=== PATIENT | female | born 1990 | race Caucasian/White ===

== ENCOUNTER 2017-04-05 14:08 | Inpatient (IN) ==
[2017-04-05] MEDS ORDERED: Naloxone 0.4 MG/ML INJ IVP PRN (14:57)
[2017-04-05] MEDS ORDERED: Metoclopramide 10 MG/2 ML VIAL IVP PRN (14:57)
[2017-04-05] MEDS ORDERED: Famotidine 20 MG/2 ML VIAL IVP PRN (14:57)
[2017-04-05] MEDS ORDERED: Ondansetron 4 MG/2 ML VIAL IVP PRN (14:57)
[2017-04-05] MEDS ORDERED: *HR* Nalbuphine 20 MG/ML AMPUL IVP PRN (14:57)
--- NOTE | 2017-04-05 15:13 | OB/GYN History & Physical ---
Date of Encounter: 04/05/17 Time of Encounter: 15:04 Assessment and Plan (1) 40 weeks gestation of Current visit: Yes Status: Acute Admit for induction of labor Continuous monitoring Anticipate (2) Hypertension affecting in third trimester Current visit: Yes Status: Acute Serial BP measurements PIH lab work up with UPCR Induction plan to begin with hennessy bulb. Patient informed and agrees. History of Present Illness Chief complaint: IOL for hypertension at 40 weeks HPI: Ms. Munoz is a 26 year old female at 40w0d who was sent for IOL from the office for elevated blood pressure today. Patient denies headache, visual changes, epigastric pain, and swelling. Denies fluid leakage, bleeding, and reports positive movement. Denies contractions but irregular ctx noted on monitor. Blood type O+ GBS negative HbSAG negative T. Pall negative Rubella non-immune Varicella immune Past Med Surg Social Fam HX - Past Medical History Medical history: no medical history Psychiatric history: no psych history - Past Surgical History Surgical History: other (T&A "a couple of years ago") - Social History Smoking Status: Never smoker Smokeless Tobacco Status: No Alcohol use: none Drug use: none Obstetrical History - Pregnancies : 1 Para: 0 Term: 0 : 0 Ab's: 0 Livin Medications and Allergies Cephalexin [Keflex] 500 mg PO QID #28 capsule 11/20/16 [Rx] 3 Allergy/AdvReac Type Severity Reaction Status Date / Time Sulfa (Sulfonamide Allergy Hives Verified 11/20/16 01:04 Antibiotics) Review of System OB All systems PM: reviewed and no additional remarkable complaints except as stated Exam - Constitutional Constitutional: well developed, well nourished, no acute distress, average body habitus - Neck Neck exam: full ROM, normal inspection - Lungs Respiratory exam: CTAB - Cardiovascular Cardiovascular exam: RRR, +S1, +S2 - Breasts Breast: bilateral: normal - Abdomen Abdomen: Present: bowel sounds normal, gravid, non tender - Extremities Extremities exam: full ROM, normal capillary refill, normal inspection - Cervix Dilation: 1 Effacement: 50 (Per Dr. Solitario office exam) Station: -3 - Comments Comments: FHR 140 bpm, moderate variability, no accels, no decels. Category I tracing. Irregular contractions noted. Results All other labs normal. - VTE Reasons for not Prescribing Prophylaxis: Treatment not Indicated - Low risk for VTE
[2017-04-05] MEDS ORDERED: Ringers Solution, Lactated 1,000 ML ONE ×2 (15:31→22:36)
[2017-04-05 16:03] LABS: Basophils % 0.3 %; Eosinophils # 0.1 K/mcL (0.0-0.6); Eosinophils % 1.2 %; Hematocrit 38.9 % (35.3-44.9); Hemoglobin 12.3 g/dL (11.5-15.4); Immature Granulocytes % 0.7 % (0-4); Lymphocytes # 1.8 K/mcL (0.6-4.6); Lymphocytes % 14.8 %; Mean Corpuscular HGB Conc 31.6 g/dL (31.6-35.5); Mean Corpuscular Hemoglobin 27.2 pg (28.0-33.3); Mean Corpuscular Volume 86.1 fL (83.0-100.0); Mean Platelet Volume 12.2 fL (9.4-12.4); Monocytes # 0.9 K/mcL (0.0-1.3); Monocytes % 7.1 %; Neutrophils # 9.1 K/mcL (1.6-8.9); Platelet Count 195 K/mcL (140-400); Red Blood Count 4.52 M/mcL (3.82-4.97); Red Cell Distribution Width 14.3 % (11.5-14.5); Segmented Neutrophils % 75.9 %
[2017-04-05 16:05] LABS: Amphetamine Screen,Urine Negative ng/mL (Cutoff=1000); Barbiturate Screen,Urine Negative ng/mL (Cutoff=200); Benzodiazepines Screen,Urine Negative ng/mL (Cutoff=200); Cannabinoid Screen,Urine Negative ng/mL (Cutoff = 50); Cocaine Screen,Urine Negative ng/mL (Cutoff= 300); Opiate Screen,Urine Negative ng/mL (Cutoff=300); Phencyclidine Screen,Urine Negative ng/mL (Cutoff=25)
--- NOTE | 2017-04-05 16:21 | OB Labor Progress Note ---
Date of Encounter: 04/05/17 Time of Encounter: 15:26 Labor Progress Note - Subjective Subjective: Patient resting in bed, denies complaint of contraction pain. Discussed plan of care and patient is agreeable to placement of hennessy bulb. - Cervix Cervix: 2/50/-2 - Heart Tones Heart Tones: 135 bpm, moderate variability, no accels, variable decels. - [place]: 2-4 minutes - Interventions Interventions: SVE, attempted to place hennessy balloon with unintentional AROM of moderate amount of moderate/heavy meconium fluid. - Plan Plan: Continue expectant management. Assess contraction pattern after AROM to determine need for further augmentation /induction.
[2017-04-05 16:42] LABS: Alanine Aminotransferase 6 Units/L (7-52); Aspartate Amino Transferase 9 Units/L (13-39); BUN/Creatinine Ratio 18 (6-26); Blood Urea Nitrogen 7 mg/dL (6-20); Lactate Dehydrogenase 133 Units/L (140-271); Uric Acid 5.6 mg/dL (2.3-7.6); eGFR For African Americans > 60 (> 60); eGFR For Non-African Americans > 60 (> 60)
[2017-04-05] MEDS ORDERED: miSOPROStol 100 MCG TABLET PO STA (21:40)
--- NOTE | 2017-04-05 22:49 | OB Labor Progress Note ---
Date of Encounter: 04/05/17 Time of Encounter: 22:48 Labor Progress Note - Subjective Subjective: Pt comfortable at this time. - Heart Tones Heart Tones: Category I - [place]: irregular - Plan Plan: Cytotec 50mcg given PO for augmentation of labor. Continue to monitor closely. Epidural when requested. Anticipate .
[2017-04-06] MEDS ORDERED: Oxytocin 20 units/ LR 1000 mL 20 UNIT/1,000 ML BAG IVC SCH ×2 (02:30→18:03)
[2017-04-06] MEDS ORDERED: Ringers Solution, Lactated 1,000 ML ONE ×4 (05:19→15:25)
[2017-04-06] MEDS ORDERED: *HR* FentaNYL (PF) 100 MCG/2 ML VIAL EP ONE (05:45)
[2017-04-06] MEDS ORDERED: Epidural Premix (fent/bupiv) 110 ML EP SCH (05:45)
[2017-04-06] MEDS ORDERED: Bupivacaine-MPF 0.25% 10 ML VIAL EP ONE (05:45)
[2017-04-06] MEDS ORDERED: Epidural Premix (fent/bupiv) 110 ML EP ONE ×2 (05:59→12:54)
--- NOTE | 2017-04-06 06:38 | Anesthesia Evaluation PreOp ---
Date of Encounter: 04/06/17 Time of Encounter: 05:50 - Past History Planned Operation: labor epidural Cardiac History: Denies any Significant Hx Pulmonary History: Denies Any Significant HX, Other EMBOSSING TOOLSETTER History: Denies Any Significant HX Other Medical History: Other (Obesity.) Alcohol Use: none Drug use: none Medications and Allergies Pnv Plus Multivit Tab 04/05/17 [History] 3 Allergy/AdvReac Type Severity Reaction Status Date / Time Sulfa (Sulfonamide Allergy Hives Verified 11/20/16 01:04 Antibiotics) - Meds/Allergy Pre-op Review Medications Reviewed: Yes Allergies Reviewed: Yes Beta Blockers on Current Med List: No Anesthesia Results - Labs 04/05/17 15:15 04/05/17 15:15 Anesthesia Exam Height: 5'4" Weight: 94 kg NPO (# of Hours): 24 Pain Scale: 6 Pain Scale Used: Numeric (1 - 10) - HEENT Pupil (Motor): Pupils equal, EOMI Mallampati: II Teeth: Poor dentition Oral Opening: Greater than 3 - EMBOSSING TOOLSETTER LOC: Oriented EMBOSSING TOOLSETTER Motor: Normal RUE, Normal LUE, Normal RLE, Normal LLE, Normal Face EMBOSSING TOOLSETTER Sensory: Normal: RUE, LUE, RLE, LLE, Face - Cardiac Rhythm: Regular - Pulmonary Breath Sounds: bilateral Clear Respiratory Effort: Symmetrical Anesthesia Assess/Plan ASA Score: 2 Modified Whitney Scale for Level of Consciousness: Cooperative, oriented, and tranquil Anesthetic Plan: Regional Monitoring Plan: Standard Monitors
--- NOTE | 2017-04-06 06:42 | Anesthesia Procedures ---
Date of Encounter: 04/06/17 Time of Encounter: 06:01 Procedures: Anesthesia - Epidural/Spinal Patient ID/Chart reviewed: Yes Patient examined: Yes OB Eval: Gestational age: 40 OB Eval: : 1 OB Eval: Hx Para: 0 OB Eval: Contractions: Non-stressed pattern Consent Obtained: Yes Supplemental Oxygen: None/Room Air Site Prep: Aseptic Technique, Sterile prep and drape, Povidone-Iodine 1% Patient position: upright Local Anesthetic: Lidocaine 1% Amount of Local Anesthetic used: 5 Touhy Needle Gauge: 18 Touhy Needle Depth (cm): 6 Catheter Depth at Skin (cm): 18 Test Dose (1.5% Lido + Epi): Volume given (mls): 3 Test Dose Result: Negative Loading Dose: 0.25% Marcaine (mls): 8 Loading Dose: Fentanyl (mcg): 100 Loading Dose Administered: Thru Touhy Needle Infusion Med: 0.125% Bupivacaine w/ 2 mcg/ml Fentanyl Infusion Rate (mls/hr): [address]: Tegaderm, Tape Interspace Used: L3-L4 Loss of Resistance (JYOTI): Yes Blood: No CSF: No Paresthesia: No Vitals + FHT's: 3 Vital Signs Time 0601 0618 0620 0625 0630 BP 120/81 117/77 121/79 111/68 111/63 Pulse 101 97 80 96 80 FHTs 140 130 130 130 130
[2017-04-06] MEDS ORDERED: EPHEDrine 50 MG/ML VIAL ONE ×2 (07:12→15:29)
--- NOTE | 2017-04-06 10:51 | OB Labor Progress Note ---
Date of Encounter: 04/06/17 Time of Encounter: 10:49 Labor Progress Note - Subjective Subjective: Patient comfortable in bed with epidural. - Vital Signs Vital Signs: BP-107/66 80 - Cervix Cervix: 3/80/-2 - Heart Tones Heart Tones: 135/moderate variability/- accels/Variables and early decels Cat 2 - [place]: 2-6 - Plan Plan: FSE placed earlier to improve tracing, will place IUPC, Continue Pitocin per policy Frequent repositioning Anticipate Care and tracing reviewed with Dr. Solitario
[2017-04-06] MEDS ORDERED: *HR* Phenylephrine 10 MG/ML VIAL ONE (12:59)
--- NOTE | 2017-04-06 13:45 | OB Labor Progress Note ---
Date of Encounter: 04/06/17 Time of Encounter: 13:43 Labor Progress Note - Subjective Subjective: Patient comfortable with epidural - Cervix Cervix: 3/90/-2 - Heart Tones Heart Tones: 125/moderate/+accels/late, variables - [place]: 2-4 - Plan Plan: Currently Pitocin off Discussed plan of care with Dr. Solitario. I then went in with patient and discussed lack of cervical change and changes in heart rate tracing, discussed with patient option of section or stopping Pitocin and restarting a little while once heart rate tracing improved, patient and family discussing options at this time.
[2017-04-06] MEDS ORDERED: *HR* Oxytocin 10 UNIT/ML VIAL IM ONE (14:59)
[2017-04-06] MEDS ORDERED: Chloroprocaine/PF 20 ML VIAL INFILT ONE (14:59)
[2017-04-06] MEDS ORDERED: Water for inj. (sterile) 10 ML IV ONE ×2 (15:00→15:39)
[2017-04-06] MEDS ORDERED: Ondansetron 4 MG/2 ML VIAL ONE (15:00)
[2017-04-06] MEDS ORDERED: *HR* FentaNYL (PF) 100 MCG/2 ML VIAL ONE (15:29)
[2017-04-06] MEDS ORDERED: Morphine Sulfate/PF 5mg/10mL Vial ONE (15:29)
[2017-04-06] MEDS ORDERED: Bupivacaine-MPF 0.25% 10 ML VIAL ONE (15:42)
[2017-04-06] MEDS ORDERED: Ondansetron 4 MG/2 ML VIAL IVP ONE (15:48)
[2017-04-06] MEDS ORDERED: MORPHINE SUL Oral CONC 10 MG/0.5 ML ORAL.SYG SL PRN (15:48)
[2017-04-06] MEDS ORDERED: *HR* OxyCODONE/APAP 5/325 TABLET PO PRN ×2 (15:48→18:03)
[2017-04-06] MEDS ORDERED: Acetaminophen IV 1,000 MG/100 ML INFUS..BTL IVPB ONE (15:48)
--- NOTE | 2017-04-06 16:20 | OB/GYN Procedure Note ---
Section - Date of procedure: 04/06/17 Preop diagnosis: arrest of dilation, category 2 FHT tracing Post-op diagnosis: same Procedure: section, primary low transverse Surgeon: Delicia Solitario Estimated blood loss (cc): 500 Was there an quality assurance assistant present: Yes Typewriter Assembler: Jojo Evans Boiler Room Operator: Antonio Vale Anesthesia Type: Epidural section complications: none Disposition: L&D Recovery Room Specimens: Placenta (hold) - Infant (s) Infant A Infant Delivery Date: 04/06/17 Infant Delivery Time: 15:38 Presentation: vertex Gender: Female Pounds: 7 Ounces: 8 Gram Weight: 3.415 kg at 1 minute: 8 at 5 minutes: 9 Specimens collected: cord blood Placenta: spontaneous Cord: nuchal cord, 3 umbilical vessels, delivered through nuchal - Narrative Narrative: Indications: Patient with a category 2 tracing Pitocin off and still 3 cm dilated after more than 9 hours Discussion with patient and family to proceed with a section due to failure to dilate with nonreassuring well- being. Informed consent is obtained. Patient was taken to the operative suite where her epidural anesthesia was dosed. She was then prepped and draped in normal sterile fashion in the dorsal supine position. Timeout was then performed. Antibiotics were given at room time. SCDs are on and active. Pfannenstiel skin incision is then made and carried through to underlying layer of fascia with the Bovie. The fascia was then incised in the midline and incision extended laterally with the Parmar scissors. The fascia was tented up and dissected off the rectus muscles sharply. The rectus muscles were in the midline and the peritoneum was tented up and entered sharply with the Metzenbaum scissors. The peritoneal incision was then extended bluntly. The bladder blade was then inserted and the vesicouterine peritoneum was entered sharply. Bladder flap was created digitally. A low transverse uterine incision was then made. The infant vertex was brought to the incision and the infant was delivered using fundal pressure. There was a nuchal cord which was delivered through. Cord was clamped and cut. Infant was handed to waiting nursery staff. Placenta delivered spontaneously complete and intact with a three-vessel cord. The uterus was cleared of all clots and debris using moist laparotomy sponge. The uterine incision was then closed using 0 Vicryl in a running locked fashion. A second layer of the same suture was used to obtain excellent hemostasis. The abdomen was then cleared of all clots and debris using copious irrigation. The fascial incision was then closed using 0 Vicryl in a running fashion. The skin was closed using 4-0 Vicryl in a subcuticular fashion. Steri- Strips and sterile dressing are then placed. Sponge, needle, and instrument counts are correct at the end of the procedure. Mother and infant taken to recovery in stable condition.
[2017-04-06] MEDS ORDERED: Sennosides 8.6 MG TABLET PO PRN (18:03)
[2017-04-06] MEDS ORDERED: Acetaminophen 325 MG TABLET PO PRN (18:03)
[2017-04-06] MEDS ORDERED: Metoclopramide 10 MG/2 ML VIAL IVP PRN (18:03)
[2017-04-06] MEDS ORDERED: Ondansetron 4 MG/2 ML VIAL IVP PRN (18:03)
[2017-04-06] MEDS ORDERED: Naloxone 0.4 MG/ML INJ IVP PRN (18:03)
[2017-04-06] MEDS ORDERED: Simethicone 80 MG TAB.CHEW PO PRN (18:03)
[2017-04-06] MEDS ORDERED: Measles/Mumps/Rubella Vacc 0.5 ML VIAL SQ ONE (18:03)
--- NOTE | 2017-04-06 19:15 | Anesthesia Evaluation Post Op ---
Date of Encounter: 04/06/17 Time of Encounter: 19:14 - Vital Signs Vital Signs: Vital Signs/O2 Sat/Glucose, Most Current Temp Pulse Resp BP Pulse Ox 04/06/17 19:00 97.9 F 88 18 100/62 97 04/06/17 18:30 97.9 F 88 16 110/68 94 - Lungs Lungs: Clear Ascult./Percussion - Airway Airway: Non-obstructed - Cardiovascular Regular Rate, Baseline Rhythm - Mental Status Mental Status: Alert & Oriented, Answers Appropriately - Pain Pain Scale: 4 Pain Scale used: Numeric (1 - 10) - Nausea Vomiting Nausea Vomiting: Not Present - Hydration Hydration: Ice chips, Jha catheter - Discharge PostOp Status: Transfer Patient to floor
[2017-04-06] MEDS: cephALEXin 500 MG CAPSULE PO SCH (20:55)
[2017-04-06] MEDS: Azithromycin 250 MG TABLET PO SCH (20:55)
[2017-04-07] MEDS: *HR* OxyCODONE Immed Rel 5 MG TABLET PO PRN ×2 (06:30→10:34)
[2017-04-07] MEDS: Azithromycin 250 MG TABLET PO SCH (08:32)
[2017-04-07] MEDS: Prenatal Vit/FA 1 EACH TABLET PO SCH (08:32)
[2017-04-07] MEDS: cephALEXin 500 MG CAPSULE PO SCH ×3 (08:32→20:09)
--- NOTE | 2017-04-07 11:06 | OB/GYN Progress Note ---
Date of Encounter: 04/07/17 Time of Encounter: 11:04 - Assessment and Plan (1) Delivery by section of full-term infant Current Visit: Yes Status: Acute POD #1 Continue routine PP care consult Anticipate d/c home tomorrow (2) Hypertension affecting in third trimester Current Visit: Yes Status: Acute Subjective - Subjective Interval history: Feeling well OOB without dizziness Incisional pain - controlled with PO meds Cramping minimal well Passing flatus, no BM yet Tolerating regular diet Patient reports: appetite normal, voiding normally, pain well controlled, ambulating normally [place]: doing well, nursing well Objective - Vital Signs Latest vital signs: Vital Signs Temp Pulse Resp BP Pulse Ox 04/07/17 08:05 98.7 F 101 16 114/63 96 04/07/17 06:00 97.9 F 92 16 121/83 99 04/07/17 00:04 97.9 F 87 16 97 04/06/17 21:40 98.2 F 77 16 113/61 97 04/06/17 20:41 97.4 F L 83 16 105/64 96 04/06/17 19:35 97.9 F 88 16 110/61 95 04/06/17 19:30 16 04/06/17 19:00 97.9 F 88 18 100/62 97 04/06/17 18:30 97.9 F 88 16 110/68 94 Intake and Output 04/06/17 04/07/17 04/07/17 23:59 07:59 15:59 Intake Total 0 / 0 350 / 350 Output Total 1400 / 1400 1650 / 1650 Balance -1400 / -1400 -1300 / -1300 Intake: Oral 0 / 0 350 / 350 Output: Catheter 1400 / 1400 1650 / 1650 Other: Stool Characteristics Normal for Patient Weight 88.995 kg Patient Weight 04/07/17 23:59 Weight 88.995 kg - Exam Lungs: bilateral: normal Chest: Normal S1, Normal S2 Extremities: Present: normal Abdomen: Present: normal appearance, soft, gravid Incision: Present: normal, intact Uterus: Present: normal, firm Fundal Height: 0 (at umbilicus)
[2017-04-07] MEDS: Ibuprofen 600 MG TABLET PO PRN ×2 (14:53→20:09)
[2017-04-07] MEDS: *HR* OxyCODONE/APAP 5/325 TABLET PO PRN ×2 (17:26→23:31)
[2017-04-08] MEDS: cephALEXin 500 MG CAPSULE PO SCH (07:35)
[2017-04-08] MEDS: Azithromycin 250 MG TABLET PO SCH (07:35)
[2017-04-08] MEDS: *HR* OxyCODONE/APAP 5/325 TABLET PO PRN (07:35)
[2017-04-08] MEDS: Prenatal Vit/FA 1 EACH TABLET PO SCH (07:35)
[2017-04-08 07:48] VITALS: BP 134/86
--- NOTE | 2017-04-08 08:11 | Discharge Summary ---
Date of Encounter: 04/08/17 Time of Encounter: 08:11 - Discharge Diagnosis (1) Delivery by section of full-term infant Priority: Primary Status: Acute Comments: S/P Primary C/S day 2. pain is well controlled lochia is light and without clots Tolerating regular diet; passing flatus Voiding without difficulty VSS Breast feeding Discharge home today (2) Breast feeding status of mother Priority: Secondary Status: Acute - Discharge Medications Prescriptions: Ibuprofen [Motrin] 600 mg PO Q6HR PRN #30 tablet PRN Reason: Cramping OxyCODONE/APAP 5/325 [Percocet 5/325 MG] 1 each PO Q6HR PRN 3 Days #21 tablet PRN Reason: Moderate Pain Azithromycin [Zithromax] 500 mg PO DAILY #8 tablet Breast Pump [BREAST PUMP] 1 each .ROUTE AD #1 each cephALEXin [Keflex] 500 mg PO TID #18 capsule Docusate [Colace] 100 mg PO BID PRN #20 capsule PRN Reason: Constipation Ferrous Sulfate 325 mg PO DAILY #60 tablet Home Medications: Pnv Plus Multivit Tab 04/05/17 [History] Azithromycin [Zithromax] 500 mg PO DAILY #8 tablet 04/08/17 [Rx] Breast Pump [BREAST PUMP] 1 each .ROUTE AD #1 each 04/08/17 [Rx] Docusate [Colace] 100 mg PO BID PRN #20 capsule 04/08/17 [Rx] Ferrous Sulfate 325 mg PO DAILY #60 tablet 04/08/17 [Rx] Ibuprofen [Motrin] 600 mg PO Q6HR PRN #30 tablet 04/08/17 [Rx] OxyCODONE/APAP 5/325 [Percocet 5/325 MG] 1 each PO Q6HR PRN 3 Days #21 tablet [Rx] Simethicone [Gas-X] 80 mg PO TID PRN tab.chew 04/08/17 [Rx] cephALEXin [Keflex] 500 mg PO TID #18 capsule 04/08/17 [Rx] Allergies/Adverse Reactions: 3 Allergy/AdvReac Type Severity Reaction Status Date / Time Sulfa (Sulfonamide Allergy Hives Verified 11/20/16 01:04 Antibiotics) Data Procedures and tests throughout hospitalization: Laboratory Tests 04/05/17 04/05/17 04/05/17 15:15 15:15 15:15 WBC 12.0 H RBC 4.52 Hgb 12.3 Hct 38.9 MCV 86.1 MCH 27.2 L MCHC 31.6 RDW 14.3 Plt Count 195 MPV 12.2 Immature Gran % 0.7 Seg Neutrophils % 75.9 Lymphocytes % 14.8 Monocytes % 7.1 Eosinophils % 1.2 Basophils % 0.3 Neutrophils # 9.1 H Lymphocytes # 1.8 Monocytes # 0.9 Eosinophils # 0.1 Basophils # 0.0 BUN 7 Creatinine 0.39 L Est GFR ( Amer) > 60 Est GFR (Non-Af Amer) > 60 BUN/Creatinine Ratio 18 Uric Acid 5.6 AST 9 L ALT 6 L Lactate Dehydrogenase 133 L Urine Opiates Screen Negative Ur Barbiturates Screen Negative Ur Phencyclidine Scrn Negative Ur Amphetamines Screen Negative U Benzodiazepines Scrn Negative Urine Cocaine Screen Negative U Marijuana (THC) Screen Negative Date of admission: 04/05/17 14:08 Discharging clinician: Miriam Miller Anticipated date of discharge: 04/08/17 - Patient Status Disposition: Home, Self-Care Condition: Good Functional capacity at discharge: independent ambulation Overall status at discharge: patient is progressing back to baseline - Discharge Instructions Follow Up With: Delicia Solitario, [Partnered Physician] - - Diet and Activity Activity: increase activity as tolerated Diet: regular diet Hospital Course Reason for admission: induction of labor, IUP at term Delivery: section Episiotomy: none Laceration: none Other procedures: none complications: none Discharge diagnosis: IUP at term delivered baby: female Time Attestation: Total time spent providing and/or coordinating discharge services: Time Spent: Less than 30 minutes - VTE Reasons for not Prescribing Prophylaxis: Treatment not Indicated - Low risk for VTE Documentation of Mechanical Device: Intermittent pneumatic compression device Exam - Constitutional Vitals: Temp Pulse Resp BP Pulse Ox 97.9 F 93 16 134/86 99 04/08/17 07:30 04/08/17 07:30 04/08/17 07:30 04/08/17 07:30 04/08/17 04:20 General appearance IM: cooperative, A&O X 3, pleasant - Respiratory Respiratory exam: Present: CTAB - Cardiovascular Cardiovascular exam IM: Present: RRR, +S1, +S2 - GI/Abdominal GI/Abdominal exam IM: normal bowel sounds, soft Incision: normal, dry, intact - Rectal Rectal exam: deferred - Uterine Tone: Firm Uterus Position: 2 Fingers Below Umbilicus, Midline - Extremities Exam Extremities exam IM: Present: normal capillary refill, normal inspection, radial pulses palpable and symmetrical - Neurological Exam Neurological exam: alert, oriented X3, reflexes normal
[2017-04-08] MEDS: Ibuprofen 600 MG TABLET PO PRN (09:40)
[2017-04-08] MEDS ORDERED: Measles/Mumps/Rubella Vacc 0.5 ML VIAL SQ ONE (11:15)
== END 2017-04-08 14:50 | disposition home or self-care (01) | DRG 765 ==
LOC: 1NENULAB 14:08 → 1NENUOBS 04-06 18:30
PROVIDERS: ADMIT Obstetrics & Gynecology; ATTEND Obstetrics & Gynecology